=== PATIENT | female | born 1975 | race Two or more races ===

== ENCOUNTER 2016-12-13 22:41 | Emergency (ER) | payer BC, MEDICAID ==
[~2016-12-13] VITALS: Ht 160 cm; Wt 102.5 kg
[2016-12-13] MEDS ORDERED: IV SET PRIMARY 1 EA INFUS.SET MC ONE (23:07)
[2016-12-13] MEDS ORDERED: IV NS 0.9% 1,000 ML ONE (23:08)
[2016-12-13] MEDS ORDERED: IV NS 0.9% 1,000 ML BAG IV ONE (23:30)
[2016-12-13] MEDS ORDERED: KETOROLAC TROMETHAMINE INJ 60 MG/2 ML VIAL IM ONE (23:30)
[2016-12-13] MEDS ORDERED: KETOROLAC TROMETHAMINE INJ 30 MG/ML VIAL ONE (23:49)
[2016-12-14 00:08] VITALS: BP 130/90
[2016-12-14] MEDS ORDERED: KETOROLAC TROMETHAMINE INJ 30 MG/ML VIAL IV ONE (00:30)
== END 2016-12-14 00:09 | disposition home or self-care (01) ==
LOC: ER 22:46
DX: F43.9 Reaction to severe stress, unspecified (principal); Z98.890 Other specified postprocedural states
CPT/HCPCS: 93005; 96361; 96374; 99284; A4606; J1885; J7030; Z7610